=== PATIENT | male | born 1990 ===

== ENCOUNTER 2018-10-08 09:57 | Emergency (ER) | payer OTHER ==
[2018-10-08 10:00] VITALS: BMI 26.9
[2018-10-08] MEDS ORDERED: Sodium Chloride 0.9% 1,000 ML IV STA (10:36)
[2018-10-08 11:01] LABS: EOS % 0.7 % (0.0-4.0); HEMOGLOBIN 14.2 g/dL (12.0-18.0); LYMPH % 30.2 % (20.0-40.0); MEAN CELL VOLUME 88.9 fl (80.0-94.0); MEAN CORPUSCULAR HEMOGLOBIN 29.1 pg (27.0-31.0); MEAN CORPUSCULAR HGB CONC 32.7 g/dL (33.0-37.0); MEAN PLATELET VOLUME 10.1 fl (7.2-11.7); MONO # 0.3 K/uL (0.0-0.8); MONO % 7.6 % (0.0-10.0); NEUT % 60.5 % (50.0-75.0); NRBC % 0.2 % (0.0-0.0); RBC 4.86 Mil/uL (4.40-5.90); RED CELL DISTRIBUTION WIDTH 13.2 % (11.5-14.5); WHITE BLOOD COUNT 3.3 K/uL (4.8-10.8)
[2018-10-08 11:09] LABS: ALB/GLOB RATIO 1.4 (1.0-2.1); ALBUMIN 4.7 g/dL (3.5-5.0); ALT/SGPT 25 U/L (21-72); AST/SGOT 29 U/L (17-59); BLOOD UREA NITROGEN 20 mg/dl (9-20); CALCIUM 9.6 mg/dL (8.4-10.2); GFR NON-AFRICAN AMERICAN > 60
--- NOTE | 2018-10-08 11:53 | CT ---
Date of service: 10/08/2018 PROCEDURE: CT HEAD WITHOUT CONTRAST. HISTORY: headache, generlized weakness COMPARISON: None available. TECHNIQUE: Axial computed tomography images were obtained through the head/brain without intravenous contrast. Radiation dose: Total exam DLP = 881.78 mGy-cm. This CT exam was performed using one or more of the following dose reduction techniques: Automated exposure control, adjustment of the mA and/or kV according to patient size, and/or use of iterative reconstruction technique. FINDINGS: HEMORRHAGE: No intracranial hemorrhage. BRAIN: No evidence of large acute infarct. No obvious masses or edema seen. VENTRICLES: No obstructive hydrocephalus CALVARIUM: Unremarkable. PARANASAL SINUSES: Unremarkable as visualized. No significant inflammatory changes. MASTOID AIR CELLS: Unremarkable as visualized. No inflammatory changes. OTHER FINDINGS: None. IMPRESSION: No acute intracranial hemorrhage.
--- NOTE | 2018-10-08 12:22 | ED PDOC ---
HPI: General Adult Time Seen by Provider: 10/08/18 10:14 Chief Complaint (Nursing): Dizziness/Lightheaded Chief Complaint (Provider): Headache, lightheaded, generalized weakness History Per: Patient History/Exam Limitations: no limitations Onset/Duration Of Symptoms: Days (Began yesterday morning ) Additional Complaint(s): 28 yo male with no medical problems presents for evaluation of head pain and feeling lightheaded. PT states yesterday he felt acute onset of headache when he stood up. No similar in the past. Pt states head pain is all over his head. Pt also reports generalized weakness. Pt states that he feels like he cant toe pounder his hands. Pt did not taking anything for pain prior to arrival. Pt states mother and father are both healthy. Past Medical History Reviewed: Historical Data, Nursing Documentation, Vital Signs Vital Signs: Last Vital Signs Temp 97.8 F 10/08/18 09:58 Pulse 73 10/08/18 09:58 Resp 17 10/08/18 09:58 BP 136/77 10/08/18 09:58 Pulse Ox 99 10/08/18 09:58 - Medical History PMH: No Chronic Diseases - Surgical History Surgical History: No Surg Hx - Family History Family History: States: Unknown Family Hx - Immunization History Hx Tetanus Toxoid Vaccination: No Hx Influenza Vaccination: No Hx Pneumococcal Vaccination: No - Home Medications Home Medications: Ambulatory Orders Medication Instructions Recorded Cephalexin [Keflex] 500 mg PO QID #28 capsule 05/21/18 Ibuprofen [Motrin] 600 mg PO TID #15 tab 05/21/18 - Allergies Allergies/Adverse Reactions: Allergies Allergy/AdvReac Type Severity Reaction Status Date / Time No Known Allergies Allergy Verified 05/21/18 08:20 Review of Systems ROS Statement: Except As Marked, All Systems Reviewed And Found Negative Constitutional: Negative for: Fever, Chills ENT: Negative for: Ear Pain, Ear Discharge Cardiovascular: Positive for: Light Headedness. Negative for: Chest Pain, Palpitations, Edema Respiratory: Negative for: Cough, Shortness of Breath Gastrointestinal: Negative for: Nausea, Vomiting, Abdominal Pain Physical Exam - Reviewed Nursing Documentation Reviewed: Yes Vital Signs Reviewed: Yes - Physical Exam Appears: Positive for: Well, Non-toxic, No Acute Distress Head Exam: Positive for: ATRAUMATIC, NORMAL INSPECTION, NORMOCEPHALIC Skin: Positive for: Normal Color, Warm, DRY Eye Exam: Positive for: EOMI, Normal appearance, PERRL ENT: Positive for: Normal ENT Inspection Neck: Positive for: Normal, Painless ROM Cardiovascular/Chest: Positive for: Regular Rate, Rhythm Respiratory: Positive for: Normal Breath Sounds. Negative for: Accessory Muscle Use, Respiratory Distress Pulses-Radial (L): 2+ Pulses-Radial (R): 2+ Gastrointestinal/Abdominal: Positive for: Normal Exam, Soft. Negative for: Tenderness, Distended, Guarding Back: Positive for: Normal Inspection Extremity: Positive for: Normal ROM. Negative for: Tenderness, Deformity, Swelling, Other ([employer] strength 5/5 ) Neurological/Psych: Positive for: Awake, Alert, Normal Tone - Laboratory Results Result Diagrams: 10/08/18 10:55 10/08/18 10:55 Lab Results: Total Bilirubin 0.9 mg/dl (0.2-1.3) 10/08/18 10:55 AST 29 U/L (17-59) 10/08/18 10:55 ALT 25 U/L (21-72) 10/08/18 10:55 Alkaline Phosphatase 46 U/L (38-126) 10/08/18 10:55 Total Protein 8.0 G/DL (6.3-8.2) 10/08/18 10:55 Albumin 4.7 g/dL (3.5-5.0) 10/08/18 10:55 Globulin 3.3 gm/dL (2.2-3.9) 10/08/18 10:55 Albumin/Globulin Ratio 1.4 (1.0-2.1) 10/08/18 10:55 - ECG O2 Sat by Pulse Oximetry: 99 Pulse Ox Interpretation: Normal Medical Decision Making Medical Decision Making: EKG - NSR Head CT normal. Pt reports feeling much better on re-evaluation. Disposition - Clinical Impression Clinical Impression: Lightheadedness - Patient ED Disposition Is Patient to be Admitted: No Counseled Patient/Family Regarding: Diagnosis, Need For Followup - Disposition Referrals: [facility] [Outside] Disposition: Routine/Home Disposition Time: 13:33 Condition: GOOD Additional Instructions: Please follow-up with PMD or [facility]. Instructions: Headache, Adult Forms: [facility] ([place]se) Print Language: KOREAN - POA Present On Arrival: None
[2018-10-08 13:47] VITALS: BP 129/60; PULSE 70; RESP 20; TEMP 97.6; O2SAT 100
--- NOTE | 2018-10-08 21:56 | CARD ---
APPROVED REPORT Date of service: 10/08/2018 EKG Measurement Heart [id number] <Conclusion> Sinus bradycardia with competing ectopic p waves Otherwise normal ECG
== END 2018-10-08 13:48 | disposition home or self-care (01) ==
LOC: H.ER 09:57
DX: R42 Dizziness and giddiness (principal)
CPT/HCPCS: 70450; 80053; 85025; 93005; 99285; J7030